=== PATIENT | male | born 1930 | race Caucasian/White ===

== ENCOUNTER 2016-03-22 07:11 | Day surgery (SDC) | payer MEDICARE ==
[~2016-03-22] VITALS: Ht 190.5 cm; Wt 88.6 kg
[~2016-03-22 07:11] MED LIST: ASPI325T PO; BACT800T5 PO; CLIN1CAP5 PO; FISH1000 PO; LISI10TA3 PO; LORA10TA PO; OMEP10CA PO; PRAV10TA PO; RANI150C PO; TAMS5CAP PO; VITA400C5 PO
[2016-03-22 07:30] VITALS: BP 155/103; PULSE 83; RESP 20; TEMP 98.2; O2SAT 93
[2016-03-22] MEDS ORDERED: ceFAZolin 2 GM PREMIX 50 ML - implanted port/tunneled catheter insertion IV SCH (07:45)
[2016-03-22] MEDS ORDERED: SODIUM CHLORIDE 0.9% 1000 ML IV SCH (07:45)
[2016-03-22] MEDS ORDERED: VANCOMYCIN 1000 MG/NS 250 ML - implanted port/tunneled catheter IV SCH ×2 (07:45)
[2016-03-22] MEDS ORDERED: CHLORHEXIDINE GLUCONATE 2 % 1 PACK (2 CLOTHS) TOPICAL SCH (07:45)
[2016-03-22] MEDS ORDERED: POVIDONE IODINE 5% (ANTISEPSIS KIT) 4 APPLICATIONS EACH NARE SCH (07:45)
[2016-03-22] MEDS ORDERED: fentaNYL CITRATE 250 MCG/5 ML AMP ONE (09:03)
[2016-03-22] MEDS ORDERED: MIDAZOLAM HCL 5 MG/5 ML VIAL ONE (09:03)
[2016-03-22] MEDS ORDERED: LIDOCAINE 1%/EPINEPHrine 1:100,000 SOLN 20 ML VIAL ONE (09:16)
[2016-03-22 09:59] VITALS: BP_SYST 124; BP_DIAS 74; BP_DIAS 77; PULSE 84; RESP 17; TEMP 98; O2SAT 92
--- NOTE | 2016-03-22 10:00 | PD.RAD ---
Post Procedure Progress Note Pre Procedure Diagnosis: (1) Lung mass Post Procedure Diagnosis: (1) Lung mass Procedure Date: Mar 22, 2016 Supervising Radiologist: Rudy Castillo Proceduralist/Assist: Bette Minaya, RT(R)(), Jennifer Hastings RT(R) Anesthesia: Local, Conscious Sedation Plan of Activity Patient to Unit: [facility] Patient Condition: Good See PACS Report for procedural detail/treatment Central Venous Access Device Procedure 1 Right Internal Jugular Infusaport Placement single lumen Czech: 8 Rudy Castillo MD Mar 22, 2016 10:00
[2016-03-22 10:14] VITALS: BP 122/76; PULSE 80; RESP 18; O2SAT 94
[2016-03-22 10:44] VITALS: BP 123/83; PULSE 83; RESP 19; O2SAT 98
[2016-03-22 11:14] VITALS: BP 135/88; PULSE 84; RESP 18; O2SAT 96
--- NOTE | 2016-03-22 14:00 | RADRPT ---
EXAM DATE/TIME: 03/22/2016 08:37 [place] COMPARISON: No previous studies available for comparison. INDICATIONS : Patient with history of small cell lung carcinoma in need of [id number]-a-[id number] placement. MEDICAL HISTORY : HTN, HLD, GERD, A-Fib, Spinal stenosis, Diverticulitis, Lung cancer SURGICAL HISTORY : Cholecystectomy, Spinal surgery, Lung biopsy ENCOUNTER: Initial ACUITY: 1 month PAIN SCORE: 0/10 FLUORO TIME: 0.4 minutes SEDATION TIME: 30 minutes ACCESS: Right internal jugular vein SEDATION: 1.) 2 mg midazolam (Versed) IV 2.) 100 mcg fentanyl (Sublimaze) IV Prophylactic antibiotics were administered with appropriate pre-procedure timing. Vancomycin within 2 hours of procedure, Ancef (or alternative) within 1 hour of procedure. DEVICE: 1. 8 [place] single lumen Bard Power Port PROCEDURE : 1. Continuous pulse oximetry and EKG monitoring. 2. Intravenous conscious sedation. 3. Ultrasound guidance for venous access. 4. Fluoroscopic guided implantable central venous port placement. The patient was placed supine. The neck was prepped in sterile fashion. Full sterile technique was u sed, including cap, mask, sterile gloves and gown, and a large sterile sheet. Hand hygiene and 2% ch lorhexidine Betadine was utilized per protocol for cutaneous antisepsis with appropriate dry time for site. The skin and subcutaneous tissues were infiltrated with local anesthetic solution. Under direct ultrasound guidance, central venous access was accomplished in the targeted vessel. The ultrasound images depicting access guidance were stored and saved to PACS for permanent record. A s ubcutaneous pocket was created using blunt dissection. The port was introduced to the pocket. The c atheter tubing was fed through a subcutaneous tunnel to the venotomy site. The catheter tubing was c ut to a suitable length and then was introduced through a valved Peel-Away sheath and positioned with catheter tubing tip at the cavo-atrial junction level. The pocket incision was closed with subcutic ular Vicryl suture. Steri-Strips were applied. The port was flushed and locked with heparin solutio n per protocol. Sterile dressing was applied to the site. The patient tolerated the procedure well. Conscious sedation was performed with the prescribed dosages and duration as above. The patient celeste ated the procedure well and there were no complications. EKG and oximetry remained stable throughout the procedure. The patient was sent to post anesthesia recovery in stable condition. CONCLUSION: Uncomplicated ultrasound and fluoroscopic guided implanted central venous port catheter placement as described in detail above. An 8 Green[place]ic Power port was placed. Rudy Castillo MD on March 22, 2016 at 13:58 Board Certified Radiologist. This report was verified electronically.
== END 2016-03-22 12:05 | disposition home or self-care (01) ==
LOC: HRIP 07:11 → HROP 07:11
PROVIDERS: ATTEND Internal Medicine
DX: C34.90 Malignant neoplasm of unspecified part of unspecified bronchus or lung (principal); I10 Essential (primary) hypertension
CPT/HCPCS: 36561; 76937; 77001; 99152; 99153; C1788; J0690; J1642; J2250; J3010; J3370; J7030; J7050

== ENCOUNTER → 2016-10-19 | Outpatient (CLI) | payer MEDICARE ==
[~2016-10-19] MED LIST changes: -BACT800T5 PO; -CLIN1CAP5 PO; -TAMS5CAP PO
[2016-10-19 09:07] LABS: HEMATOCRIT 41.1 % (39.0-51.0); MEAN CELL VOLUME 95.1 FL (80.0-100.0); MEAN CORPUSCULAR HEMOGLOBIN 32.8 PG (27.0-34.0); MEAN CORPUSCULAR HGB CONC 34.5 % (32.0-36.0); PLATELET COUNT 110 TH/MM3 (150-450); RED BLOOD COUNT 4.32 MIL/MM3 (4.50-5.90); REVIEW FLAG FINAL
[2016-10-19 09:34] LABS: ALT (GPT) 14 U/L (12-78); ANION GAP 7 MEQ/L (5-15); AST (GOT) 12 U/L (15-37); BICARBONATE 29.4 MEQ/L (21.0-32.0); BLOOD UREA NITROGEN 15 MG/DL (7-18); CHLORIDE 103 MEQ/L (98-107); GLOMERULAR FILTRATION RATE 70 ML/MIN (>89); GLUCOSE,FASTING 120 MG/DL (74-99); POTASSIUM 4.3 MEQ/L (3.5-5.1); SODIUM (NA) 139 MEQ/L (136-145)
[2016-10-19 09:44] LABS: ALKALINE PHOSPHATASE 113 U/L (45-117); HDL CHOLESTEROL 41.2 MG/DL (40.0-60.0); LDL CHOLESTEROL 103 MG/DL (0-99); TOTAL BILIRUBIN ADULT 0.4 MG/DL (0.2-1.0)
== END ==
LOC: PLAB 07:25
PROVIDERS: ATTEND Family Medicine
DX: E87.1 Hypo-osmolality and hyponatremia (principal); E78.4 Other hyperlipidemia; D3A.8 Other benign neuroendocrine tumors; I10 Essential (primary) hypertension; R73.01 Impaired fasting glucose; K21.0 Gastro-esophageal reflux disease with esophagitis; K57.30 Diverticulosis of large intestine without perforation or abscess without bleeding
CPT/HCPCS: 36415; 80053; 80061; 84443; 85027

== ENCOUNTER → 2016-11-29 | Outpatient (CLI) | payer MEDICARE ==
[2016-11-29 13:13] LABS: BLOOD, URINE NEG (NEG); COMMENT (UR) CULT NOT INDICATED; CULTURE IF INDICATED CULT NOT INDICATED; GLUCOSE,URINE NEG (NEG); KETONE, URINE NEG (NEG); MUCUS URINE FEW /lpf (OCC); NITRITE,URINE NEG (NEG); PH, URINE 6.5 (5.0-8.5); URINE COLOR YELLOW (YELLW/STRAW)
[2016-11-29 13:31] LABS: FREE T3 2.04 PG/ML (2.18-3.98); FREE T4 1.04 NG/DL (0.76-1.46)
== END ==
LOC: PLAB 09:08
PROVIDERS: ATTEND Family Medicine
DX: R50.9 Fever, unspecified (principal); C34.90 Malignant neoplasm of unspecified part of unspecified bronchus or lung
CPT/HCPCS: 36415; 81001; 84439; 84443; 84481

== ENCOUNTER → 2017-02-27 | Outpatient (CLI) | payer MEDICARE ==
[~2017-02-27] MED LIST changes: +ASPI-183 PO; -ASPI325T PO
[2017-02-27 09:31] LABS: HEMATOCRIT 42.4 % (39.0-51.0); MEAN CELL VOLUME 95.6 FL (80.0-100.0); MEAN CORPUSCULAR HEMOGLOBIN 32.5 PG (27.0-34.0); PLATELET COUNT 203 TH/MM3 (150-450); RED BLOOD COUNT 4.44 MIL/MM3 (4.50-5.90); RED CELL DISTRIBUTION WIDTH 13.9 % (11.6-17.2); REVIEW FLAG FINAL; WHITE BLOOD COUNT 4.6 TH/MM3 (4.0-11.0)
[2017-02-27 09:49] LABS: ALT (GPT) 18 U/L (12-78)
[2017-02-27 09:51] LABS: ANION GAP 7 MEQ/L (5-15); AST (GOT) 21 U/L (15-37); BICARBONATE 28.5 MEQ/L (21.0-32.0); BLOOD UREA NITROGEN 12 MG/DL (7-18); CHLORIDE 102 MEQ/L (98-107); GLOMERULAR FILTRATION RATE 76 ML/MIN (>89); GLUCOSE,FASTING 100 MG/DL (74-99); POTASSIUM 4.2 MEQ/L (3.5-5.1); SODIUM (NA) 137 MEQ/L (136-145)
[2017-02-27 09:59] LABS: ALKALINE PHOSPHATASE 94 U/L (45-117); HDL CHOLESTEROL 39.1 MG/DL (40.0-60.0); LDL CHOLESTEROL 158 MG/DL (0-99); TOTAL BILIRUBIN ADULT 0.5 MG/DL (0.2-1.0)
[2017-02-27 22:07] LABS: HEMOGLOBIN A1a 1.2 %; HEMOGLOBIN A1b 0.9 %; HEMOGLOBIN Ao 85.2 %; HEMOGLOBIN F 0.9 %; HEMOGLOBIN LA1C 1.7 %; HEMOGLOBIN P3 3.6 %
== END ==
LOC: PLAB 07:40
PROVIDERS: ATTEND Family Medicine
DX: E87.1 Hypo-osmolality and hyponatremia (principal); E78.4 Other hyperlipidemia; D3A.8 Other benign neuroendocrine tumors; I10 Essential (primary) hypertension; R73.01 Impaired fasting glucose; K21.0 Gastro-esophageal reflux disease with esophagitis; K57.30 Diverticulosis of large intestine without perforation or abscess without bleeding
CPT/HCPCS: 36415; 80053; 80061; 83036; 84443; 85027

== ENCOUNTER → 2017-07-06 | Outpatient (CLI) | payer MEDICARE ==
[2017-07-06 10:14] LABS: HEMATOCRIT 40.3 % (39.0-51.0); HEMOGLOBIN 14.1 GM/DL (13.0-17.0); MEAN CELL VOLUME 91.4 FL (80.0-100.0); MEAN CORPUSCULAR HEMOGLOBIN 31.9 PG (27.0-34.0); MEAN CORPUSCULAR HGB CONC 34.9 % (32.0-36.0); PLATELET COUNT 139 TH/MM3 (150-450); RED BLOOD COUNT 4.41 MIL/MM3 (4.50-5.90); WHITE BLOOD COUNT 3.4 TH/MM3 (4.0-11.0)
[2017-07-06 10:21] LABS: ALBUMIN 3.6 GM/DL (3.4-5.0); AST (GOT) 19 U/L (15-37); BLOOD UREA NITROGEN 11 MG/DL (7-18); CALCIUM 9.3 MG/DL (8.5-10.1); CHLORIDE 104 MEQ/L (98-107); CREATININE 0.97 MG/DL (0.60-1.30); GLOMERULAR FILTRATION RATE 73 ML/MIN (>89); GLUCOSE,FASTING 106 MG/DL (74-99); SODIUM (NA) 141 MEQ/L (136-145)
[2017-07-06 10:23] LABS: ALT (GPT) 16 U/L (12-78); CHOLESTEROL 195 MG/DL (120-200); TRIGLYCERIDES 93 MG/DL (42-150)
[2017-07-06 10:33] LABS: ALKALINE PHOSPHATASE 103 U/L (45-117); CHOLESTEROL/ HDL RATIO 5.05 RATIO; HDL CHOLESTEROL 38.6 MG/DL (40.0-60.0); LDL CHOLESTEROL 138 MG/DL (0-99); TOTAL BILIRUBIN ADULT 0.6 MG/DL (0.2-1.0)
[2017-07-06 18:53] LABS: HEMOGLOBIN A1C 6.1 % (4.3-6.0)
== END ==
LOC: PLAB 07:18
PROVIDERS: ATTEND Family Medicine
DX: E87.1 Hypo-osmolality and hyponatremia (principal); E78.4 Other hyperlipidemia; C34.90 Malignant neoplasm of unspecified part of unspecified bronchus or lung; D3A.8 Other benign neuroendocrine tumors; I10 Essential (primary) hypertension; R73.01 Impaired fasting glucose; K21.0 Gastro-esophageal reflux disease with esophagitis; K57.30 Diverticulosis of large intestine without perforation or abscess without bleeding
CPT/HCPCS: 36415; 80053; 80061; 83036; 84443; 85027

== ENCOUNTER 2017-08-16 06:14 | Day surgery (SDC) | payer MEDICARE ==
[~2017-08-16] VITALS: Ht 190.5 cm; Wt 76.4 kg
[2017-08-16 06:59] VITALS: BP 138/89; PULSE 87; RESP 18; TEMP 97.8; O2SAT 96
[2017-08-16] MEDS ORDERED: ceFAZolin 2 GM PREMIX 50 ML - implanted port removal IV SCH (07:15)
[2017-08-16] MEDS ORDERED: SODIUM CHLORIDE 0.9% 1000 ML IV SCH (07:15)
[2017-08-16] MEDS ORDERED: LIDOCAINE 1%/EPINEPHrine 1:100,000 SOLN 30 ML VIAL ONE (07:39)
[2017-08-16] MEDS ORDERED: MIDAZOLAM HCL 2 MG/2 ML VIAL ONE (07:48)
[2017-08-16 08:35] VITALS: BP 118/79; PULSE 78; RESP 18; TEMP 97.6; O2SAT 99
[2017-08-16 08:50] VITALS: BP 122/70; PULSE 83; RESP 17; O2SAT 98
[2017-08-16 09:20] VITALS: BP 130/80; PULSE 79; RESP 19; O2SAT 99
[2017-08-16 09:50] VITALS: BP 127/83; PULSE 82; RESP 18; O2SAT 98
[2017-08-16 10:20] VITALS: BP 124/84; PULSE 85; RESP 19; O2SAT 99
--- NOTE | 2017-08-16 13:18 | RADRPT ---
INDICATIONS: Patient presents with a history of lung cancer and cellulitis at the port site I need o f port removal that is no longer needed. CLINICAL DATA: This is the patient's subsequent encounter. Patient reports that signs and symptoms h ave been present for 4 - 6 months and indicates a pain score of 0/10. Location: Chest, Laterality: Right MEDICAL/SURGICAL HISTORY: Hypertension. A fib Hx of small cell lung cancer Cholecystectomy. Sp inal surgery Lung biopsy COMPARISON: No prior [place] exams available for comparison. FLUORO TIME (min): IMAGE SERIES: 0 ACCESS SITE: SEDATION TIME (min): 30 CONTRAST (cc): MEDICATION(S): 2 mg midazolam (Versed) IV 100 mcg fentanyl (Sublimaze) IV Vancomycin within 2 hrs of procedure, Ancef (or alternative) within 1 hr of procedure. DEVICE(S): . . PROCEDURE: 1. Removal of [id number]. 2. Conscious sedation with continuous EKG and oximetry monitoring. The risk, benefits and potential complications of [id number]-[id number] removal were discussed. Written conse nt was obtained. The patient was placed supine. The chest wall was prepped in sterile fashion. Full sterile techniqu e was used, including cap, mask, sterile gloves and gown, and a large sterile sheet. Hand hygiene an d 2% chlorhexidine and/or Betadine/alcohol prep was utilized per protocol for cutaneous antisepsis. The skin and subcutaneous tissues were infiltrated with local anesthetic solution. An elliptical inci gunner was made to excise the eroded skin superficial to the port which was exposed. The port was disse cted from the subcutaneous tissues and removed intact. The port pocket was liberally irrigated with s trung solution. The incision was then closed in a single layer using interrupted 3-0 Prolene suture. Steri-Strips were applied. Conscious sedation was performed with the prescribed dosages and duration as above in the presence of an independent trained radiology nurse to assist in the monitoring of the patient. EKG and oximetry remained stable throughout the procedure. The patient tolerated the procedure well and there were no complications. The patient was sent to post anesthesia recovery in stable condition. CONCLUSION: 1. Uncomplicated port removal as above. 2. Patient will need to return in 7 days for suture removal. Electronically signed by: Homer Bustillo MD 08/16/2017 1:17 PM EDT
== END 2017-08-16 10:35 | disposition home or self-care (01) ==
LOC: HROP 06:14 → HRIP 06:17 → HROP 10:35
PROVIDERS: ATTEND Internal Medicine
DX: Z45.2 Encounter for adjustment and management of vascular access device (principal); C34.12 Malignant neoplasm of upper lobe, left bronchus or lung; I10 Essential (primary) hypertension
CPT/HCPCS: 36590; 99152; 99153; J0690; J2250; J3010; J7030

== ENCOUNTER 2017-08-23 10:35 | Day surgery (SDC) | payer MEDICARE ==
[~2017-08-23 10:35] MED LIST changes: -LISI10TA3 PO
[2017-08-23 10:50] VITALS: BP 155/99; PULSE 81; RESP 18; TEMP 98.1; O2SAT 97
== END 2017-08-23 11:25 | disposition home or self-care (01) ==
LOC: HRIP 10:35 → HROP 10:35
PROVIDERS: ATTEND Radiology Body Imaging
DX: Z48.02 Encounter for removal of sutures (principal); C34.12 Malignant neoplasm of upper lobe, left bronchus or lung
CPT/HCPCS: 99212; G0463